=== PATIENT | male | born 1965 | race Caucasian/White ===

== ENCOUNTER 2018-01-26 13:49 | Emergency (ER) | payer OTHER, BC ==
[~2018-01-26] VITALS: Ht 165.1 cm; Wt 60.0 kg
[~2018-01-26 13:49] MED LIST: CYCL-36 PO; HYDR10TA16 PO; PREG25 PO
[2018-01-26 14:00] VITALS: BP 120/71; PULSE 75; RESP 16; TEMP 98.4; O2SAT 99
--- NOTE | 2018-01-26 14:27 | RADRPT ---
EXAM DATE: 01/26/2018 2:23 PM EDT AGE/SEX: 52 years / Male INDICATIONS: Left elbow pain and swelling after getting caught in a folding machine. CLINICAL DATA: This is the patient's initial encounter. Patient reports that signs and symptoms have been present for 2 days and indicates a pain score of 10/10. MEDICAL/SURGICAL HISTORY: None. None. COMPARISON: No prior [place] exams available for comparison. FINDINGS: Bony structures are intact and in normal alignment. Joints are intact without dislocation or signifi cant arthropathy. Osseous density is normal. Soft tissues are unremarkable. No radiopaque foreign bodies seen. CONCLUSION: Negative examination Electronically signed by: Jorge A Macias MD 01/26/2018 2:26 PM EDT
--- NOTE | 2018-01-26 14:38 | PD ---
HPI Chief Complaint: Injury Time Seen by Provider: 14:04 Travel History International Travel<30 days: No Contact w/Intl Traveler<30days: No Traveled to known affect area: No History of Present Illness HPI 52-year-old male here with left arm pain 1 day. He reports while at work his arm was pulled into a pressing/folding machine after his sleeve was caught. He had pain localized to the elbow. He has normal range of motion. He has normal sensation of the extremity. Pain is reproduced by palpation of the area and range of motion. Symptom severity is moderate. Slightly alleviated with rest. PFSH Past Medical History Medical History: Denies Significant Hx Arthritis: Yes Blood Disorders: No Anxiety: Yes Cancer: No Cardiovascular Problems: No Endocrine: No Genitourinary: No Headaches: Yes Immune Disorder: No Musculoskeletal: Yes Neurologic: Yes Psychiatric: Yes Reproductive: No Respiratory: No Tetanus Vaccination: < 5 Years Past Surgical History Oral Surgery: Yes (DENTAL) Thoracic Surgery: Yes (LEFT KNEE ARTHROSCOPY) Social History Alcohol Use: No Tobacco Use: Yes (1 PPD) Substance Use: No Allergies-Medications (Allergen,Severity, Reaction): Coded Allergies: codeine (Unverified Allergy, Severe, MIGRAINES, 01/26/18) penicillin G (Unverified Allergy, Severe, SWELLING, 01/26/18) Reported Meds & Prescriptions Reported Meds & Active Scripts Active No Active Prescriptions or Reported Medications Review of Systems Except as stated in HPI: all other systems reviewed are Neg General / Constitutional: No: Fever Neurologic: No: Weakness Physical Exam Narrative GENERAL: Alert and well-appearing 52-year-old male SKIN: Warm and dry. Abrasion noted to the dorsal aspect of the left elbow. No surrounding erythema or cellulitis. HEAD: Normocephalic. EYES: No injection or drainage. NECK: Supple CARDIOVASCULAR: Regular rate and rhythm RESPIRATORY: Breath sounds equal bilaterally. No accessory muscle use. GASTROINTESTINAL: Abdomen soft, non-tender, nondistended. MUSCULOSKELETAL: No cyanosis. LUE: +TTP and swelling noted to the left distal humerus, elbow, proximal forearm. Compartments are swollen but soft. Palpable brachial and radial pulse. Normal sensation of the shoulder, elbow, wrists, all fingers. Normal sensation distally. Normal strength. Data Data Last Documented VS Vital Signs Date Time Temp Pulse Resp B/P (MAP) Pulse Ox O2 Delivery O2 Flow Rate FiO2 01/26/18 14:00 98.4 75 16 120/71 (87) 99 Orders Orders Elbow, Complete (4 Vws) (01/26/18 ) Sling Cradle Arm (01/26/18 ) MDM Medical Decision Making Medical Screen Exam Complete: Yes Emergency Medical Condition: Yes Differential Diagnosis Fracture, contusion, abrasion, compartment syndrome Narrative Course 52-year-old male here with left elbow pain after his arm was injured by a large piece of machinery. The extremity is neurovascularly intact. Compartments are soft. X-rays negative for fracture. He will be treated for contusion. Return precautions discussed. Diagnosis Primary Impression: Contusion Qualified Codes: S40.022A - Contusion of left upper arm, initial encounter Referrals: Primary Care Physician Departure Forms: Tests/Procedures Additional Instructions: Ice and elevate the extremity. Sling for comfort. Tylenol and ibuprofen as needed for pain. Follow-up with your primary doctor. Return if you have new or worsening symptoms. Scripts No Active Prescriptions or Reported Meds Disposition: 01 DISCHARGE HOME Condition: Stable Debbie Cody Jan 26, 2018 14:38
== END 2018-01-26 14:57 | disposition home or self-care (01) ==
LOC: PHEFT 13:49
DX: S40.022A Contusion of left upper arm, initial encounter (principal); S50.312A Abrasion of left elbow, initial encounter; M19.90 Unspecified osteoarthritis, unspecified site; F41.9 Anxiety disorder, unspecified; F17.200 Nicotine dependence, unspecified, uncomplicated; W31.89XA Contact with other specified machinery, initial encounter; Z88.5 Allergy status to narcotic agent; Z88.0 Allergy status to penicillin
CPT/HCPCS: 73080; 99283